=== PATIENT | male | born 2000 | race Caucasian/White ===

== ENCOUNTER 2021-10-04 15:19 | Day surgery (SDC) | payer OTHER ==
[2021-10-04] MEDS ORDERED: GLUCAGON 1 MG/ML VIAL IVP STA (15:27)
--- NOTE | 2021-10-04 15:35 | ED Physician Documentation ---
History of Present Illness - Stated complaint Stated Complaint: CHOKING - Chief complaint Chief Complaint: Heent - History obtained from History obtained from: Patient, EMS - History of Present Illness Timing: Today Pain level max: 1 Pain level now: 1 - Additonal information Additional information: 21 year old male with choking episode on a turkey meatball today at home. feels like it is stuck and now is unable to swallow, even saliva. has never had similar episodes previously. Nothing makes it better or worse. Review of Systems Constitutional: denies: Fever, Chills Ears: denies: Ear pain Nose: denies: Rhinorrhea / runny nose, Congestion Respiratory: denies: Cough GI: denies: Vomiting, Diarrhea Skin: denies: Rash Musculoskeletal: denies: Neck pain, Back pain Neurologic: denies: Headache PD PAST MEDICAL HISTORY - Past Medical History Past Medical History: No - Past Surgical History Past Surgical History: No - Living Situation Living Situation: reports: With family Living Arrangement: reports: At home - Social History Does the pt smoke?: No Does the pt drink ETOH?: No Does the pt have substance abuse?: No - Family History Family history: reports: Non contributory PD ED PE NORMAL - Vitals Vital signs reviewed: Yes - General General: Alert and oriented X 3, No acute distress - HEENT HEENT: Moist mucous membranes, Pharynx benign - Neck Neck: Supple, no meningeal sign - Cardiac Cardiac: RRR, Strong equal pulses - Respiratory Respiratory: No respiratory distress, Clear bilaterally - Abdomen Abdomen: Soft, Non tender, Non distended - Derm Derm: Warm and dry - Neuro Neuro: Alert and oriented X 3 - Psych Psych: Normal mood, Normal affect Results - Vitals Vitals: Vital Signs - 24 hr 10/04/21 15:23 Temperature 36.8 C Heart Rate 67 Respiratory 16 Rate Blood Pressure 124/78 O2 Saturation 99 Oxygen O2 Source Room air - Labs Labs: Laboratory Tests 10/04/21 16:01 Nasal Adenovirus (PCR) NOT DETECTED Nasal B. parapertussis DNA (PCR) NOT DETECTED Nasal Coronavir 229E PCR NOT DETECTED Nasal Coronavir HKU1 PCR NOT DETECTED Nasal Coronavir NL63 PCR NOT DETECTED Nasal Coronavir OC43 PCR NOT DETECTED Nasal Enterovir/Rhinovir PCR NOT DETECTED Nasal Influenza B PCR NOT DETECTED Nasal Influenza A PCR NOT DETECTED Nasal Parainfluen 1 PCR NOT DETECTED Nasal Parainfluen 2 PCR NOT DETECTED Nasal Parainfluen 3 PCR NOT DETECTED Nasal Parainfluen 4 PCR NOT DETECTED Nasal RSV (PCR) NOT DETECTED Nasal B.pertussis DNA PCR NOT DETECTED Nasal C.pneumoniae (PCR) NOT DETECTED Tariq Human Metapneumo PCR NOT DETECTED Nasal M.pneumoniae (PCR) NOT DETECTED Nasal SARS-CoV-2 (PCR) DETECTED A PD MEDICAL DECISION MAKING - ED course Complexity details: considered differential, d/w patient ED course: Patient with an esophageal food impaction. He is unable to tolerate even saliva. IV was started. IV glucagon given followed by warm Coke. Still unable to tolerate p.o. Contacted general surgery, Dr. Powers who will plan for endoscopy. Patient also positive for COVID. Patient taken to same-day surgery for endoscopic removal Departure - Departure Disposition: ED Transfer to [facility] Clinical Impression: Esophageal obstruction due to food impaction, COVID-19 Condition: Stable Discharge Date/Time: 10/04/21 17:14
[2021-10-04] MEDS ORDERED: LIDOCAINE-MPF 2% 5 ML VIAL ONE (16:48)
[2021-10-04] MEDS ORDERED: PROPOFOL 200 MG/20 ML VIAL IVP ONE ×2 (16:48→17:32)
[2021-10-04] MEDS ORDERED: SUCCINYLCHOLINE 200 MG/10 ML VIAL ONE (16:48)
[2021-10-04] MEDS ORDERED: DEXAMETHASONE 4 MG/ML VIAL ONE (16:48)
[2021-10-04] MEDS ORDERED: ONDANSETRON 4 MG/2 ML VIAL ONE (16:48)
[2021-10-04] MEDS ORDERED: MIDAZOLAM 2 MG/2 ML VIAL ONE (16:49)
--- NOTE | 2021-10-04 16:54 | ANESTHESIA ---
Pre-Anesthesia VS, & Labs - Diagnosis food bolus - Procedure EGD Vital Signs: Temp Pulse Resp BP Pulse Ox 36.8 C 67 16 124/78 99 10/04/21 15:23 10/04/21 15:23 10/04/21 15:23 10/04/21 15:23 10/04/21 15:23 Height: 6 ft 1 in Weight (kg): 86.183 kg Body Mass Index: 25.0 BMI Classification: Overweight - NPO Other (1600) - Lab Results Lab results reviewed: Yes Anes History & Medical History - Anesthetic History Anesthesia Complications: reports: No previous complications Family history of Anesthesia Complications: Denies Family history of Malignant Hyperthermia: Denies - Medical History Cardiovascular: reports: None Pulmonary: reports: None Gastrointestinal: reports: None Urinary: reports: None Exam General: Alert, Oriented x3, Cooperative, No acute distress Dental: WNL Mouth Openin Fingerbreadth Neck Mobility: Normal Mallampati classification: I Plan Anesthesia Type: General Consent for Procedure(s) Verified and Reviewed: Yes Code Status: Attempt Resuscitation ASA classification: 1-Healthy patient Is this case an emergency?: Yes
[2021-10-04] MEDS ORDERED: ATROPINE ABBOJECT 1 MG/10 ML SYRINGE IVP PRN (16:56)
[2021-10-04] MEDS ORDERED: MORPHINE 2 MG/ML CARPUJECT IVP PRN (16:56)
[2021-10-04] MEDS ORDERED: fentaNYL 100 MCG/2 ML VIAL IVP PRN (16:56)
[2021-10-04] MEDS ORDERED: METOCLOPRAMIDE 10 MG/2 ML VIAL IVP PRN (16:56)
[2021-10-04] MEDS ORDERED: HYDROmorphone 0.5 MG/0.5 ML SYRINGE IVP PRN (16:56)
[2021-10-04] MEDS ORDERED: NALOXONE 0.4 MG/ML VIAL IVP PRN (16:56)
[2021-10-04] MEDS ORDERED: ONDANSETRON 4 MG/2 ML VIAL IVP PRN ×2 (16:56→17:48)
[2021-10-04] MEDS ORDERED: ePHEDrine 50 MG/ML VIAL IVP PRN (16:56)
--- NOTE | 2021-10-04 16:57 | HISTORY & PHYSICAL EXAMINATION ---
Chief Complaint - Chief Complaint Chief Complaint: food stuck History of Present Illness - Admitted From Admitted From:: ed - History Obtained From Records Reviewed: yes History obtained from: ED MD and pt Exam Limitations: none - History of Present Illness HPI Comment/Other: Swallowed a turkey meat ball a couple hours ago and has not been able to swallow since. Spitting up saliva. Uncomfortable. Medical treatment/ measures in ED has not been successful. No prior similar symptoms. No history GERD type symptoms History - Family & Social History Living arrangement: At home Living Situation: With family Review of Systems - Other Findings Other Findings: 10 pt ros as above otherwise unremarkable. States otherwise healthy Exam - Vital Signs Reviewed Vital Signs: Yes Vital Signs: Vital Signs x48h Temp Pulse Resp BP Pulse Ox 10/04/21 15:23 36.8 C 67 16 124/78 99 - Physical Exam General Appearance: positive: Alert, Mild distress Eyes Bilateral: positive: PERRL, EOMI, No scleral icterus ENT: positive: No signs of dehydration Neck: positive: No JVD Respiratory: positive: No respiratory distress, Breath sounds nml Cardiovascular: positive: Regular rate & rhythm Abdomen: positive: Non-tender, No distention Neurologic/Psychiatric: positive: Oriented x3 Conclusion/Plan - Problem List (1) Esophageal obstruction due to food impaction Conclusion/Plan: plan egd and removal obstruction. parq held and consent obtained - Lab Results Lab results reviewed: Yes
[2021-10-04] MEDS ORDERED: LACTATED RINGERS 1,000 ML IV SCH (17:00)
[2021-10-04 17:04] LABS: B. PARAPERTUSSIS- RESP PCR PAN NOT DETECTED; B. PERTUSSIS- RESP PCR PANEL NOT DETECTED; C. PNEUMONIAE- RESP PCR PANEL NOT DETECTED; CORONAVIRUS 229E-RESP PCR NOT DETECTED; CORONAVIRUS HKU1-RESP PCR NOT DETECTED; CORONAVIRUS NL63-RESP PCR NOT DETECTED; CORONAVIRUS OC43-RESP PCR NOT DETECTED; HUMAN METAPNEUMOVIRUS NOT DETECTED; INFLUENZA A- RESP PCR PANEL NOT DETECTED; INFLUENZA B - RESP PCR PANEL NOT DETECTED; M. PNEUMONIAE- RESP PCR PANEL NOT DETECTED; PARAINFLUENZA VIRUS 1 NOT DETECTED; PARAINFLUENZA VIRUS 2 NOT DETECTED; PARAINFLUENZA VIRUS 3 NOT DETECTED; PARAINFLUENZA VIRUS 4 NOT DETECTED; RHINOVIRUS/ENTEROVIRUS NOT DETECTED; RSV- RESP PCR PANEL NOT DETECTED
[2021-10-04 17:05] LABS: SARS-CoV-2 -RESP PCR PANEL DETECTED
[2021-10-04] MEDS ORDERED: ACETAMINOPHEN 325 MG TABLET PO PRN (17:49)
[2021-10-04] MEDS ORDERED: LACTATED RINGERS 1,000 ML IV ONE (17:57)
--- NOTE | 2021-10-04 18:02 | ANESTHESIA POST OP EVALUATION ---
Anesthesia Post Eval - Post Anesthesia Eval Vitals: Last Vital Signs Temp 36.1 C L 10/04/21 17:55 Pulse 90 10/04/21 17:55 Resp 20 10/04/21 17:55 BP 120/56 L 10/04/21 17:55 Pulse Ox 99 10/04/21 17:55 CV Function Including HR & BP: Stable Pain Control: Satisfactory Nausea & Vomiting: Negative Mental Status: Baseline Respiratory Status: Airway Patent Hydration Status: Satisfactory Anesthesia Complications: None
[2021-10-04 18:30] VITALS: BP 131/52
== END 2021-10-04 16:36 | disposition home or self-care (01) ==
LOC: ED 15:19 → SDS 16:35
PROVIDERS: ATTEND Surgery
DX: T18.128A Food in esophagus causing other injury, initial encounter (principal); X58.XXXA Exposure to other specified factors, initial encounter; Z20.822 Contact with and (suspected) exposure to COVID-19
CPT/HCPCS: 0202U; 43247; J0330; J7120; 96374; 99283